=== PATIENT | female | born 1950 | race Caucasian/White ===

== ENCOUNTER → 2022-07-15 | Outpatient (CLI) | payer OTHER ==
[~2022-07-15] MED LIST: BENAML10/2 PO; CYCL10 PO; HYDACE5 PO; TRIHYD5075 PO
== END ==
LOC: LAB SHORT 16:45 → LAB 16:45
DX: R30.0 Dysuria (principal)
CPT/HCPCS: 87077; 87086; 87186

== ENCOUNTER → 2024-05-11 | Outpatient (CLI) | payer OTHER | LOC: LAB SHORT 10:40 → LAB 10:40 | DX: R31.29 Other microscopic hematuria (principal) | CPT/HCPCS: 87086 ==